=== PATIENT | male | born 1995 | race Caucasian/White ===

== ENCOUNTER 2023-09-29 15:07 | Emergency (ER) | payer OTHER ==
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
[2023-09-29] MEDS ORDERED: KETOROLAC 15 MG/ML 1 ML VIAL IM STA (15:53)
--- NOTE | 2023-09-29 16:07 | XR ---
Lumbar spine HISTORY: Low back pain. COMPARISON: None. TECHNIQUE: 3 views lumbar spine were obtained. FINDINGS: The lumbar vertebral segments are normal in height and alignment and there is no fracture subluxation . The disc spaces are well-maintained in height and there is no significant degenerative disc disease. The facet joints are intact. The visualized sacrum and SI joints are normal. IMPRESSION: No significant abnormality seen.
[2023-09-29] MEDS ORDERED: LIDOCAINE 4% PATCH TOPICAL STA (17:44)
[2023-09-29] MEDS ORDERED: methylPREDNISolone SOD SUCCI 125 MG/2 ML VIAL IM ONE (17:44)
[2023-09-29] MEDS ORDERED: methocarbamoL 750 MG TAB PO STA (17:44)
[2023-09-29 18:21] VITALS: BP 134/79; PULSE 78; RESP 18; TEMP 98
== END 2023-09-29 18:29 | disposition home or self-care (01) ==
LOC: EC 15:07
DX: G89.29 Other chronic pain (principal); M54.9 Dorsalgia, unspecified; M54.30 Sciatica, unspecified side; I10 Essential (primary) hypertension; F17.200 Nicotine dependence, unspecified, uncomplicated; Z88.0 Allergy status to penicillin; Z88.8 Allergy status to other drugs, medicaments and biological substances
CPT/HCPCS: 99284 ×2; 96372 ×3; 72100; J2930; J1885